=== PATIENT | female | born 1965 ===

== ENCOUNTER 2017-03-25 06:27 | Day surgery (SDC) | payer MEDICAID ==
[~2017-03-25 06:27] MED LIST: ANCEF/STERILE WATER 2 GM/20 ML IV NR
[2017-03-25] MEDS ORDERED: NACL BACTERIOSTATIC INFILTRATI ONE (09:19)
--- NOTE | 2017-03-25 09:29 | Anesthesia Day of Surgery ---
Anesthesia Day of Surgery - Day of Surgery Patient Examined: Yes Patient H&P Reviewed: Yes Patient is NPO: Yes
--- NOTE | 2017-03-25 09:29 | Anesthesia Consultation ---
Anesthesia Consult and Med Hx Date of service: 03/25/17 - Airway Anesthetic Teeth Evaluation: Good, Caps, Partials ROM Head & Neck: Adequate Mental/Hyoid Distance: Adequate Mallampati Class: Class II Intubation Access Assessment: Probably Good - Pulmonary Exam CTA: Yes - Cardiac Exam Cardiac Exam: RRR - Pre-Operative Health Status ASA Pre-Surgery Classification: ASA3 Proposed Anesthetic Plan: General - Pulmonary Hx Smoking: No Hx Asthma: No Hx Sleep Apnea: No (SURY PRE SCREEN LOW RISK) - Cardiovascular System Hx Hypertension: Yes - Central Nervous System Hx Seizures: No CVA: No Hx Psychiatric Problems: No - Endocrine Hx Renal Disease: No Hx Cirrhosis: No Hx Insulin Dependent Diabetes: No Hx Non-Insulin Dependent Diabetes: Yes (pre diabetic) Hx Hypothyroidism: No - Hematic Hx Anemia: Yes - Other Systems Hx Alcohol Use: No Hx Substance Use: No Hx Cancer: Yes (breast ca)
[2017-03-25 09:48] LABS: Basophils % (Auto) 0.4 % (0.0-1.8); Eosinophils % (Auto) 5.3 % (0.0-4.3); Hematocrit 36.5 % (30.3-42.9); Mean Corpuscular HGB Conc 36 % (30-34); Mean Corpuscular Hemoglobin 30 pg (28-32); Mean Corpuscular Volume 83 fl (79-97); Platelet Count 270 K/mm3 (140-440); Red Blood Count 4.38 M/mm3 (3.65-5.03); Red Cell Distribution Width 12.4 % (13.2-15.2); White Blood Count 5.1 K/mm3 (4.5-11.0)
[2017-03-25] MEDS ORDERED: ZOFRAN IV PRN (10:00)
[2017-03-25] MEDS ORDERED: VERSED IV NR (10:00)
[2017-03-25] MEDS ORDERED: PEPCID PO NR (10:00)
[2017-03-25] MEDS ORDERED: NACL 0.9% 1000 ML 1,000 ML IV SCH (10:00)
[2017-03-25] MEDS ORDERED: PERCOCET 5/325 PO PRN (10:30)
[2017-03-25] MEDS ORDERED: DILAUDID ONE (11:05)
[2017-03-25] MEDS ORDERED: NACL 0.9% IR ONE (11:05)
[2017-03-25] MEDS ORDERED: ZEMURON IV ONE (11:05)
[2017-03-25] MEDS ORDERED: DIPRIVAN 10 MG/ML IV ONE (11:05)
[2017-03-25] MEDS ORDERED: ZOFRAN ONE (11:05)
[2017-03-25] MEDS ORDERED: XYLOCAINE MPF 2% ONE (11:06)
[2017-03-25] MEDS ORDERED: ROBINUL ONE (13:23)
[2017-03-25] MEDS ORDERED: NEOSTIGMINE ONE (13:23)
[2017-03-25] MEDS ORDERED: NACL 0.9% 1000 ML 1,000 ML ONE (13:23)
[2017-03-25] MEDS: DILAUDID IV PRN ×2 (13:40→13:51)
--- NOTE | 2017-03-25 13:45 | Post Anesthesia Evaluation ---
- Post Anesthesia Evaluation Patient Participated: Yes Airway Patent: Yes Stable Respiratory Function: Yes Temp > 96.8F: Yes Pain Manageable: Yes Adequeate Hydration: Yes Anesthesia Complications: No
[2017-03-25] MEDS ORDERED: PERCOCET 5/325 PO NR (16:00)
--- NOTE | 2017-03-25 16:41 | Discharge Summary ---
Short Stay Discharge Plan Activity: other (NO HEAVY LIFTING >10LBS X 6WEEKS) Weight Bearing Status: Full Weight Bearing Diet: regular Wound: remove dressing (72HRS) Follow up with: ARNAV ANTON MD [Primary Care Provider] - 6 Weeks WORK,NICOLETTE Maldonado JR, MD [Staff Physician] - 7 Days Forms: [facility] DC Inst.
--- NOTE | 2017-03-25 16:44 | Short Stay Summary ---
Short Stay Documentation Date of service: 03/25/17 - Allergies and Medications Current Medications: Allergies prednisone Adverse Reaction (Verified 11/15/16 14:38) Anaphylaxis Home Medications Medication Instructions Recorded Confirmed Last Taken Type Amlodipine Besylate [Amlodipine 1 tab PO DAILY 11/15/16 03/25/17 1 Month Ago History Besylate] Ferrous Sulfate [Ferrous Sulfate] 1 tab PO DAILY 11/15/16 03/25/17 03/23/17 History Metformin HCl [Metformin HCl] 1 tab PO DAILY 11/15/16 03/25/17 03/24/17 History Cholecalciferol Vit D3 [Vitamin D3] 1,000 unit PO QDAY 03/25/17 03/25/17 History Cyanocobalamin (Vitamin B-12) 2,000 mcg PO DAILY 03/25/17 03/25/17 03/17/17 History [Vitamin B-12] Vitamin E (Dl,Tocopheryl Acet) 400 unit PO DAILY 03/25/17 03/25/17 03/21/17 History [Vitamin E] Active Medications Cefazolin Sodium (Ancef/Sterile Water 2 Gm/20 Ml) 2 gm IV PREOP NR Stop: 03/25/17 23:59 Sodium Chloride (Nacl 0.9% 1000 Ml) 1,000 mls @ 125 mls/hr IV DIRECT MINERVA Last Admin: 03/25/17 10:10 Dose: 125 mls/hr Midazolam HCl (Versed) 2 mg IV PREOP NR Stop: 03/25/17 23:59 Last Admin: 03/25/17 10:11 Dose: 2 mg Oxycodone/Acetaminophen (Percocet 5/325) 1 tab PO ONCE NR Stop: 03/25/17 19:00 Last Admin: 03/25/17 16:22 Dose: 1 tab - Brief post op/procedure progress note Date of procedure: 03/25/17 Pre-op diagnosis: VENTRAL INCISIONAL HERNIA Post-op diagnosis: same Procedure: VENTRAL INCISIONAL HERNIA REPAIR WITH MESH Anesthesia: GETA Findings: 10CM2 FASCIAL HERNIA DEFECT Surgeon: NICOLETTE PARKER JR Estimated blood loss: minimal Specimen disposition: to lab (HERNIA SAC) Condition: stable - Disposition Condition at discharge: Good Disposition: DC-01 TO HOME OR SELFCARE Short Stay Discharge Plan Follow up with: ARNAV ANTON MD [Primary Care Provider] - 6 Weeks WORK,NICOLETTE Maldonado JR, MD [Staff Physician] - 7 Days Forms: Outpatient Surgery DC Inst.
[2017-03-25 17:24] VITALS: BP 140/85
--- NOTE | 2017-03-25 19:24 | Operative Report ---
PREOPERATIVE DIAGNOSES: 1. Ventral incisional hernia, right lower quadrant of the abdomen. 2. Status post bilateral TRAM flap breast reconstruction. POSTOPERATIVE DIAGNOSES: 1. Ventral incisional hernia, right lower quadrant of the abdomen. 2. Status post bilateral TRAM flap breast reconstruction. PROCEDURE: Ventral incisional hernia repair with polypropylene mesh. SURGEON: Tyrell Ward MD CAN PILER: Josesito Reese CSA FINDINGS: The patient had a 6 x 8 cm fascial attenuation and hernia. DESCRIPTION OF PROCEDURE: The patient was brought in the operating room and placed on the table in supine position. Following administration of general anesthesia, the abdomen was prepped with a Betadine solution and draped in the usual sterile manner. A #10 blade scalpel was used to re-incise the Pfannenstiel surgical scar and deepen through subcutaneous fat down to fascia. The abdominal wall skin flap was elevated superiorly and inferiorly thereby exposing the area of fascial weakness and the hernia. Attenuated fascia was incised, hernia sac reduced, and polypropylene mesh was sewn in place with a running #1 Prolene horizontal mattress suture through good fascia surrounding the borders of the defect. The attenuated fascia was then closed over the top of the mesh. A 10 mm PATRICIA drain was placed and layered closure was performed with interrupted and running subcuticular 2-0 Monocryl sutures. Mastisol, Steri-Strips, and sterile dressings were applied. The patient tolerated the procedure well and returned to the recovery room in stable condition. JOB# [id number] FTW/NTS
== END 2017-03-25 16:35 | disposition home or self-care (01) ==
LOC: OR 06:27
PROVIDERS: ATTEND Plastic Surgery
DX: K43.2 Incisional hernia without obstruction or gangrene (principal); I10 Essential (primary) hypertension; D64.9 Anemia, unspecified; Z85.3 Personal history of malignant neoplasm of breast; Z98.890 Other specified postprocedural states; Z79.899 Other long term (current) drug therapy; Z80.0 Family history of malignant neoplasm of digestive organs; Z82.49 Family history of ischemic heart disease and other diseases of the circulatory system
CPT/HCPCS: 36415; 49560; 49568; 81025; 82962; 85025; 88302; C1781; J0690; J1170; J2250; J2405; J2704; J2710; J7030